=== PATIENT | male | born 1985 | race Caucasian/White ===

== ENCOUNTER 2017-06-09 09:36 | Emergency (ER) | payer SELFPAY ==
[~2017-06-09] VITALS: Ht 175.3 cm; Wt 68.0 kg
[2017-06-09] MEDS ORDERED: CEFTRIAXONE 1,000 MG ONE (10:22)
[2017-06-09] MEDS ORDERED: CEFTRIAXONE 1,000 MG IM ONE (10:30)
[2017-06-09 11:21] VITALS: BP 118/74
== END 2017-06-09 11:24 | disposition home or self-care (01) ==
LOC: ED 11:23
DX: J34.0 Abscess, furuncle and carbuncle of nose (principal); R55 Syncope and collapse
CPT/HCPCS: 82962; 96372; 99283; J0696